=== PATIENT | male | born 1975 | race Caucasian/White ===

== ENCOUNTER 2017-01-13 13:20 | Observation (INO) ==
--- NOTE | 2017-01-13 14:59 | Emergency Department Note ---
Disposition Clinical Impression: TIA (transient ischemic attack) Qualifiers: Transient cerebral ischemia type: unspecified Qualified Code(s): G45.9 - Transient cerebral ischemic attack, unspecified Headache Qualifiers: Headache type: unspecified Headache chronicity pattern: acute headache Intractability: not intractable Qualified Code(s): R51 - Headache Disposition: Admitted As Inpatient Condition: Fair Referrals: Daya Parikh CNP [Primary Care Provider] - Forms: ED Satisfaction Letter Headache HPI - General Chief Complaint: ED Headache Stated Complaint: headache, memory loss Time Seen by Provider: 01/13/17 13:45 Limitations: no limitations Nursing Notes Reviewed: Yes Vital Signs Reviewed: Yes - History of Present Illness HPI Narrative: Patient does have a history of TIA 8 years ago presents today with a onset of headache last night at home and he is not sure of the exact onset denies that it was sudden and it has been constant and bitemporal and dull and the primary reason for emergency department evaluation is because he cannot remember anything that happened after he left the house this morning. His is here as well as his 4-year-old son the story is he went to to [facility] to get coffee and is amnestic to basically tired today. No medications used for his symptoms. He does have some weakness of the left arm and numbness of the left face. Denies any slurred speech, facial droop or overt confusion however he does have the amnesia as previously stated. He denies any fevers, rash, blood in the urine or stool. Social history: Chews tobacco but admits smoking. Does drink alcohol socially. No drugs. Pain Scale: 5 - Related Data Home Medications Medication Instructions Recorded Confirmed No Known Home Drugs 01/13/17 01/13/17 Allergies Allergy/AdvReac Type Severity Reaction Status Date / Time No Known Allergies Allergy Verified 01/13/17 13:30 Review of Systems: Constitutional: No fever Vision: No blurred vision ENT: No rhinorrhea Respiratory: No cough Allergic: No allergies : No blood in urine GI: No blood in stool Hematologic: No bruising Dermatologic: No skin rash Musculoskeletal: No pain in the extremities Neuro: + numbness of the extremities Headache PMH - Past Medical History Medical history: Reports: TIA Psychiatric history: Reports: no psych history - Social History Smoking Status: Never smoker Alcohol use: Reports: occasionally Drug use: Reports: none Physical Exam CONSTITUTIONAL: Well-appearing; well-nourished; A&O X3, in no apparent distress HEAD: Normocephalic; atraumatic. EYES: PERRL, EOMI, no scleral icterus NOSE: The nose is normal in appearance without rhinorrhea NECK: Supple without rigidity, no PRANEETH RESP: Normal chest excursion with respiration; breath sounds clear and equal bilaterally; no wheezes, rhonchi, or rales CARD: Regular rhythm, without murmurs, rub or gallop ABD: Non-distended; non-tender, soft, without rigidity, rebound or guarding SKIN: Normal for age and race; warm and dry; no apparent lesions, no rash NEUROLOGICAL: Patient is alert and oriented times three. Cranial nerves III- XII are intact. Sensory and motor functions are intact. Strength is 5/5 for flexion and extension in all 4 extremities. Finger to nose testing is equal and normal bilaterally. - General Limitations: no limitations General appearance: alert, in no apparent distress Course Vital Signs Temperature 98.2 F 01/13/17 13:30 Pulse Rate 63 01/13/17 13:30 Respiratory Rate 16 01/13/17 13:30 Blood Pressure 139/91 01/13/17 13:30 O2 Sat by Pulse Oximetry 98 01/13/17 13:30 Temperature 98.2 F 01/13/17 13:30 Pulse Rate 63 01/13/17 13:30 Respiratory Rate 16 01/13/17 13:30 Blood Pressure 139/91 01/13/17 13:30 O2 Sat by Pulse Oximetry 98 01/13/17 13:30 Oxygen Delivery Oxygen Delivery Room Air Headache - [facility] Narrative Medical decision making narrative: Patient is a negative head CT, labs are pending, patient's symptoms are very concerning a specimen light of his TIA he has had in the past. I do not subarachnoid hemorrhage. Patient will be admitted. Inpatient MRI scan is ordered. I will discuss further with the hospitalist with probable neurology consultation. 1500 I did review the patient's test results. I did speak with the hospitalist who will admit the patient. Neurology consultation. They will follow up the results of the MRI scan. At this point the patient does have a stroke scale of 0 and is not a thrombolytic candidate due to prolonged duration of symptoms and very low stroke scale. 1613 - Medical Records Medical records reviewed: Yes I reviewed the patient's medical records. - Lab Data Lab results reviewed: Yes I reviewed the patient's lab results. Result diagrams: 01/13/17 14:58 01/13/17 14:58 Lab Results 01/13/17 01/13/17 01/13/17 Range/Units 13:41 14:58 14:58 WBC 7.9 (4.3-11.1) K/mcL RBC 5.38 (4.19-5.50) M/mcL Hgb 15.8 (12.9-16.9) g/dL Hct 47.0 (37.5-50.1) % MCV 87.4 (83.0-100.0) fL MCH 29.4 (28.0-33.3) pg MCHC 33.6 (31.6-35.5) g/dL RDW 12.9 (11.5-14.5) % Plt Count 228 (140-400) K/mcL MPV 11.0 (9.4-12.4) fL Immature Gran % 0.8 (0-4) % Seg Neutrophils % 62.6 % Lymphocytes % 26.6 % Monocytes % 7.0 % Eosinophils % 2.5 % Basophils % 0.5 % Neutrophils # 5.0 (1.6-8.9) K/mcL Lymphocytes # 2.1 (0.6-4.6) K/mcL Monocytes # 0.6 (0.0-1.3) K/mcL Eosinophils # 0.2 (0.0-0.6) K/mcL Basophils # 0.0 (0.0-0.2) K/mcL Sodium 139 (136-145) mEq/L Potassium 4.2 (3.5-4.5) mEq/L Chloride 106 (98-109) mEq/L Carbon Dioxide 28 (19-29) mEq/L BUN 12 (8-26) mg/dL Creatinine 0.85 (0.72-1.25) mg/dL Est GFR ( Amer) > 60 (> 60) Est GFR (Non-Af Amer) > 60 (> 60) BUN/Creatinine Ratio 14 (6-26) Glucose 96 (70-99) mg/dL POC Glucose 95 H (58-89) Calculated Osmolality 288 (280-300) Calcium 9.3 (8.6-10.8) mg/dL Troponin I (0-0.03) ng/mL Urine Color (Yellow) Urine Clarity (Clear) Urine pH (5.0-8.0) pH Units Ur Specific [place] (1.010-1.025) Urine Protein (Neg-Trace) mg/dL Urine Glucose (UA) (Normal) mg/dL Urine Ketones (Negative) mg/dL Urine Blood (Negative) Urine Nitrite (Negative) Urine Bilirubin (Negative) Urine Urobilinogen (Normal) mg/dL Ur Leukocyte Esterase (Negative) Urine Opiates Screen (Jnajkr=763) ng/mL Ur Barbiturates Screen (Llzmkx=529) ng/mL Ur Phencyclidine Scrn (Cutoff=25) ng/mL Ur Amphetamines Screen (Pgmdtt=2337) ng/mL U Benzodiazepines Scrn (Cjqbay=702) ng/mL Urine Cocaine Screen (Cutoff= 300) ng/mL U Marijuana (THC) Screen (Cutoff = 50) ng/mL 01/13/17 01/13/17 01/13/17 Range/Units 14:58 15:31 15:36 WBC (4.3-11.1) K/mcL RBC (4.19-5.50) M/mcL Hgb (12.9-16.9) g/dL Hct (37.5-50.1) % MCV (83.0-100.0) fL MCH (28.0-33.3) pg MCHC (31.6-35.5) g/dL RDW (11.5-14.5) % Plt Count (140-400) K/mcL MPV (9.4-12.4) fL Immature Gran % (0-4) % Seg Neutrophils % % Lymphocytes % % Monocytes % % Eosinophils % % Basophils % % Neutrophils # (1.6-8.9) K/mcL Lymphocytes # (0.6-4.6) K/mcL Monocytes # (0.0-1.3) K/mcL Eosinophils # (0.0-0.6) K/mcL Basophils # (0.0-0.2) K/mcL Sodium (136-145) mEq/L Potassium (3.5-4.5) mEq/L Chloride (98-109) mEq/L Carbon Dioxide (19-29) mEq/L BUN (8-26) mg/dL Creatinine (0.72-1.25) mg/dL Est GFR ( Amer) (> 60) Est GFR (Non-Af Amer) (> 60) BUN/Creatinine Ratio (6-26) Glucose (70-99) mg/dL POC Glucose (58-89) Calculated Osmolality (280-300) Calcium (8.6-10.8) mg/dL Troponin I 0.01 (0-0.03) ng/mL Urine Color Yellow (Yellow) Urine Clarity Clear (Clear) Urine pH 5.5 (5.0-8.0) pH Units Ur Specific [place] 1.027 H (1.010-1.025) Urine Protein Negative (Neg-Trace) mg/dL Urine Glucose (UA) Normal (Normal) mg/dL Urine Ketones Negative (Negative) mg/dL Urine Blood Negative (Negative) Urine Nitrite Negative (Negative) Urine Bilirubin Negative (Negative) Urine Urobilinogen Normal (Normal) mg/dL Ur Leukocyte Esterase Negative (Negative) Urine Opiates Screen Negative (Jegtdd=102) ng/mL Ur Barbiturates Screen Negative (Zapmdi=625) ng/mL Ur Phencyclidine Scrn Negative (Cutoff=25) ng/mL Ur Amphetamines Screen Negative (Nfhzih=3747) ng/mL U Benzodiazepines Scrn Negative (Mtqtnf=416) ng/mL Urine Cocaine Screen Negative (Cutoff= 300) ng/mL U Marijuana (THC) Screen Negative (Cutoff = 50) ng/mL - Radiology Data Radiology results reviewed: Yes I reviewed the patient's radiology results. Critical Care Time Critical Care Time: No
[2017-01-13 15:08] LABS: Eosinophils % 2.5 %; Hemoglobin 15.8 g/dL (12.9-16.9); Immature Granulocytes % 0.8 % (0-4); Lymphocytes % 26.6 %; Mean Corpuscular HGB Conc 33.6 g/dL (31.6-35.5); Mean Corpuscular Hemoglobin 29.4 pg (28.0-33.3); Mean Corpuscular Volume 87.4 fL (83.0-100.0); Platelet Count 228 K/mcL (140-400); Red Blood Count 5.38 M/mcL (4.19-5.50); Red Cell Distribution Width 12.9 % (11.5-14.5); Segmented Neutrophils % 62.6 %
[2017-01-13 15:09] LABS: Basophils % 0.5 %; Eosinophils # 0.2 K/mcL (0.0-0.6); Lymphocytes # 2.1 K/mcL (0.6-4.6); Monocytes # 0.6 K/mcL (0.0-1.3)
[2017-01-13 15:21] LABS: BUN/Creatinine Ratio 14 (6-26); Blood Urea Nitrogen 12 mg/dL (8-26); Calcium 9.3 mg/dL (8.6-10.8); Carbon Dioxide 28 mEq/L (19-29); Chloride 106 mEq/L (98-109); Glucose 96 mg/dL (70-99); Osmolality,Calculated 288 (280-300); Potassium 4.2 mEq/L (3.5-4.5); Sodium 139 mEq/L (136-145); eGFR For African Americans > 60 (> 60); eGFR For Non-African Americans > 60 (> 60)
[2017-01-13 15:43] LABS: Bilirubin,Urine Negative (Negative); Blood,Urine Negative (Negative); Clarity,Urine Clear (Clear); Color,Urine Yellow (Yellow); Glucose,Urine (UA) Normal (Normal); Ketones,Urine Negative (Negative); Leukocyte Esterase,Urine Negative (Negative); Nitrite,Urine Negative (Negative); PH,Urine 5.5 pH Units (5.0-8.0); Protein,Urine Negative (Neg-Trace); Specific Gravity,Urine 1.027 (1.010-1.025); Urobilinogen,Urine Normal (Normal)
[2017-01-13 15:53] LABS: Amphetamine Screen,Urine Negative ng/mL (Cutoff=1000); Barbiturate Screen,Urine Negative ng/mL (Cutoff=200); Benzodiazepines Screen,Urine Negative ng/mL (Cutoff=200); Cannabinoid Screen,Urine Negative ng/mL (Cutoff = 50); Cocaine Screen,Urine Negative ng/mL (Cutoff= 300); Opiate Screen,Urine Negative ng/mL (Cutoff=300); Phencyclidine Screen,Urine Negative ng/mL (Cutoff=25)
--- NOTE | 2017-01-14 07:52 | Internal Med History&Physical ---
Date of Encounter: 01/14/17 Time of Encounter: 08:04 Assessment and Plan (1) DVT prophylaxis Current visit: Yes Status: Acute Encourage early ambulation (2) Tobacco use Current visit: Yes Status: Acute I educated the patient about r health hazards of chewing tobacco. isk (3) TIA (transient ischemic attack) Current visit: Yes Status: Acute Sudden memory loss and inpatient with no significant toxic habits, no traumatic injury, consistent with TIA. Plan: MRI of the brain was negative. We will consult neurology. Check echocardiogram and carotid Dopplers. Start aspirin 81 mg daily. Check lipid panel. Qualifiers: Transient cerebral ischemia type: transient global amnesia Qualified Code(s ): G45.4 - Transient global amnesia Internal Medicine - H&P: HPI Chief complaint: Memory loss Admitted From: Emergency Dept Plans for Post Hospital Care: Home History of present illness: Mr. Whiting is a 42 year old male with past medical history significant for TIA 8 years ago who presented to the hospital for memory loss. History is limited by memory impairment. Currently the patient is back to baseline and states that yesterday morning he woke up at 5 AM to get ready for work. He remembers having a mild to moderate bitemporal headache. He cannot recollect any other events from yesterday morning. The next thing he remembers is waking up around noon, confused and not remembering what happened that morning. He denies any alcohol use, denies any recreational use denied before, denies starting any new medications. A 10 point review of systems was negative. Past medical history as above Past surgical history vein stripping for varicose veins of the leg. Family history positive for history of IN in the patient's father at age 60. Social history: He chews tobacco, denies alcohol abuse, denies recreational drug use. Past Med Surg Social Fam HX - Past Medical History Medical history: TIA Psychiatric history: no psych history - Social History Smoking Status: Never smoker Smokeless Tobacco Status: Yes Alcohol use: occasionally Drug use: none - Family History Father Living Status: Hx Family Cardiac Disorders: Yes Hx Family Cancer: Yes Hx Family Neurologic Disorders: Yes Internal Medicine - H&P: Meds No Known Home Drugs 01/13/17 [History] 3 Allergy/AdvReac Type Severity Reaction Status Date / Time No Known Allergies Allergy Verified 01/13/17 13:30 All Systems PM: A 10-system review of systems was performed and is negative for pertinent findings except as documented above in the HPI. - Constitutional Vitals: Temp Pulse Resp BP Pulse Ox 98.4 F 57 18 131/80 97 01/14/17 06:51 01/14/17 06:51 01/14/17 06:51 01/14/17 06:51 01/14/17 06:51 General appearance: Present: A&O X 3, no acute distress - Eye Eye exam: Present: PERRL, conjuntiva pink, sclera anicteric Pupils: Present: PERRL - Respiratory Respiratory exam: Present: CTAB. Absent: accessory muscle use, rales, rhonchi, wheezes - Cardiovascular Cardiovascular exam: Present: RRR, +S1, +S2. Absent: diastolic murmur, gallop, rubs, systolic murmur - GI/Abdominal GI/Abdominal exam: Present: normal bowel sounds, soft, no peritoneal signs. Absent: distended, tenderness - Extremities Exam Extremities exam: Present: warm, radial pulses palpable and symmetrical. Absent : calf tenderness, cyanotic, pedal edema - Neurological Exam Neurological exam: Present: CN II-XII intact, oriented X3, no focal deficits. Absent: pronater drift, facial droop, speech deficit - Skin Skin exam: Present: dry, intact Internal Med - H&P Results - Labs CBC & Chem 7: 01/13/17 14:58 01/13/17 14:58 - EKG Data -: EKG Interpreted by Myself EKG shows normal: intervals, QRS complexes Rate: bradycardia (Sinus bradycardia 57 bpm)
[2017-01-14] MEDS ORDERED: Acetaminophen 325 MG TABLET PO PRN (08:11)
[2017-01-14 09:08] LABS: Chol/HDL Ratio 4.9 (0-4.9)
[2017-01-14] MEDS: Aspirin Enteric Coated 81 MG Tablet PO SCH (09:17)
--- NOTE | 2017-01-14 09:55 | Neurology - Consult Note ---
<Frederick Magaña - Last Filed: 01/14/17 09:46> Date of Encounter: 01/14/17 Time of Encounter: 08:15 Assessment and Plan (1) Spell of altered consciousness Current Visit: Yes Status: Acute Patient presents with description of loss of memory for 4 hours as well as continued pressure remedy weakness. He states that resolution of the numbness and tingling. Physical exam shows decreased strength in left upper extremity. Imaging performed so far reveals no abnormalities. Patient's description of the events and symptoms do not entirely correspond to TIA as altered consciousness is not typically part of symptoms and he has no apparent risk factors. Although altered consciousness and lack of memory as possible with seizure, she appears to have been functional during his period of loss of memory. Transient global amnesia is possible, but patient continues to have symptoms. MRI of brain normal Will obtain MRI of patient neck Will obtain EEG Recommend aspirin History of Present Illness Chief complaint: Altered consciousness HPI: Mr. Whiting is a 42 year old male with prior history of TIA presents [place] after one day of altered mental status. He states he woke up yesterday morning and on his way to work to [employer] at 5:30 in the morning after which she has no memory. He reportedly returned to home at 9 AM it appeared fatigued and confused. He then went back to sleep and awoke at noon. His number returns that point he states he had some numbness, tingling, and some weakness in his left arm. He does not have any recollection of the events occurred, but he was able to drive himself home despite the memory loss. He states he has had an episode like this for about 8 years ago when he was diagnosed with a TIA. He was scared because the symptoms were similar to what had occurred previously. He denies being sick, fever/chills, or any illness preceding this event. He states he recently started new job but he has had no more than usual amount of stress in his life. Past Med Surg Social Fam HX - Past Medical History Medical history: TIA Psychiatric history: no psych history - Social History Smoking Status: Never smoker Smokeless Tobacco Status: Yes Alcohol use: occasionally Drug use: none - Family History Father Living Status: Hx Family Cardiac Disorders: Yes Hx Family Cancer: Yes Hx Family Neurologic Disorders: Yes Medications and Allergies No Known Home Drugs 01/13/17 [History] 3 Allergy/AdvReac Type Severity Reaction Status Date / Time No Known Allergies Allergy Verified 01/13/17 13:30 Review of Systems: Gen: Denies fever, denies chills, denies generalized weakness CV: Denies chest pain Resp: Denies shortness of breath GI: Denies nausea, denies vomiting, denies abdominal pain Neuro: Denies headache, reports confusion and memory loss as per history of present illness, reports focal weakness in left arm, reports numbness and tingling in right arm, denies vision changes Physical Examination - Vital Signs Vital Signs: Initial Vital Signs Temp Pulse Resp BP Pulse Ox 98.2 F 63 16 139/91 98 01/13/17 13:30 01/13/17 13:30 01/13/17 13:30 01/13/17 13:30 01/13/17 13:30 - Exam Exam: General: Cooperative, pleasant, no acute distress, alert and oriented 3, answers questions appropriately HEENT: Normocephalic, atraumatic, neck supple, trachea midline, Conjunctiva pink , sclera anicteric, EOMI, PERRL, oral mucosa moist, no orophargeal erythema or exudates Respiratory: No accessory muscle usage Cardiovascular: Regular rate and rhythm Extremities: No calf tenderness, noncyanotic, no pedal edema appreciated, warm, lower extremity pulses palpable and symmetrical Neurological: Alert and oriented 3, no facial droop, no focal deficits, cranial nerves II through XII grossly intact bilaterally, rapid alternating movements smooth with good nilam, finger to nose accurate but tremulous and left upper extremity, sensation to gross touch intact in upper and lower extremities bilaterally, strength 5/5 in right upper and lower extremities bilaterally, strength 4/5 in left upper extremity, DTRs 2/4 in Achilles, patellar, brachioradialis Results - Laboratory Findings CBC and BMP: 01/13/17 14:58 01/13/17 14:58 Abnormal lab findings: Abnormal lab results POC Glucose 95 (58-89) H 01/13/17 13:41 Triglycerides 150 mg/dL (< 150) H 01/14/17 08:43 Cholesterol 209 mg/dL (< 200) H 01/14/17 08:43 LDL Cholesterol, Calc 136 mg/dL (0-99) H 01/14/17 08:43 Ur Specific [place] 1.027 (1.010-1.025) H 01/13/17 15:31 Consult Discharge Plan - Plan Referrals: aDya Parikh, IT APPLICATION ARCHITECT [Primary Care Provider] - <Norbert Lewis I - Last Filed: 01/14/17 10:35> Date of Encounter: 01/14/17 Assessment and Plan (1) Spell of altered consciousness Current Visit: Yes Status: Acute Patient seen and examined with Dr. Magaña documentation. Patient had this unusually spell of altered consciousness that he was able to function due to that time but not able to remember any of those event despite the fact that he was able to drive back home and after that he managed to sleep. He did not have any focal motor weakness at that time that he could recall and also there was no reports of any jerking or shaking activity. MRI of the brain is negative for any acute ischemic abnormality and at the same time there is no other abnormality noted. At this time it is unclear the cause of these episodes that he has experienced. As far as differential is concerned One possibility that it could be transient global amnesia (TGA) But we do not have any family witness about to the conversation he had bleeding that time as most of the time these patients are not able to have any short- term memory but able to function and working memory is intact most of the time workup is negative especially stroke workup and they are back to baseline quickly. As far as consent of TIA or stroke I really doubt that is the case as most of the time with a TIA or stroke , memory is usually intact particularly not that long period of time. Other possibility could be of complex partial seizures without convulsion. For that reason we will get an EEG to look for any interictal abnormalities at this time do not think that he would require any treatment with anticonvulsant medication unless we see some abnormality on an EEG. Suggest that he should monitor his blood pressure at the same time also need to look into other similar etiologies particularly stress as it may be the contributing factor. Norbert Lewis MD History of Present Illness HPI: Mr. Whiting is a 42 year old male All Systems: A 10-system review of systems was performed and is negative for pertinent findings except as documented above in the HPI. Physical Examination - Vital Signs Vital Signs: Initial Vital Signs Temp Pulse Resp BP Pulse Ox 98.2 F 63 16 139/91 98 01/13/17 13:30 01/13/17 13:30 01/13/17 13:30 01/13/17 13:30 01/13/17 13:30 Results - Laboratory Findings CBC and BMP: 01/13/17 14:58 01/13/17 14:58 Abnormal lab findings: Abnormal lab results POC Glucose 95 (58-89) H 01/13/17 13:41 Triglycerides 150 mg/dL (< 150) H 01/14/17 08:43 Cholesterol 209 mg/dL (< 200) H 01/14/17 08:43 LDL Cholesterol, Calc 136 mg/dL (0-99) H 01/14/17 08:43 Ur Specific [place] 1.027 (1.010-1.025) H 01/13/17 15:31
[2017-01-14 13:12] LABS: Folate 11.4 ng/mL (7.0-31.4)
--- NOTE | 2017-01-14 15:32 | Electrocardiograph Report ---
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
[2017-01-15] MEDS: Aspirin Enteric Coated 81 MG Tablet PO SCH (08:25)
--- NOTE | 2017-01-15 10:18 | EEG/EMG/Oth Biometrics Report ---
EEG Procedure Report Date of procedure: 01/15/17 EEG Procedure: Routine EEG Procedure Note: This is a report of a 21 channel bipolar and referential montage EEG. A posterior dominant rhythm of 9-10 Hz moderate voltage alpha frequency is identified symmetrically in the posterior head regions. This rhythm attenuates symmetrically with eye opening. Hyperventilation is not performed during the recording. Periods of drowsiness identified as referenced by dropout of the posterior dominant rhythm and emergence of spindle-like activity. The subject does not however approach stage II sleep. Photic stimulation is performed and does not produce a driving response. The EKG rhythm strip reveals normal sinus rhythm at 66 bpm. Impressions: This EEG recording is within normal limits. There is no evidence of epileptiform activity identified during the study. Comment: A normal EEG does not preclude a diagnosis of seizure or epilepsy. If the clinical suspicion for seizure activity is high, serial EEGs or perhaps a prolonged recording may increase the yield. Please correlate clinically.
--- NOTE | 2017-01-15 14:10 | Neurology Progress Note ---
Date of Encounter: 01/15/17 Time of Encounter: 14:06 Assessment and Plan (1) Spell of altered consciousness Current Visit: Yes Status: Acute At this juncture unable to offer a concrete neurologic explanation for this gentleman's altered consciousness and ongoing paresthesias and weakness of the left upper extremity. MRI scan of the brain, MRI scan of the cervical spine, and EEG were all normal. I agree with Dr. Lewis's assessment. Certainly transient global amnesia is possible. Other explanations seem less likely. I would like to follow up with this gentleman in my office after discharge to perform an EMG study of the left upper extremity. You may discharge him at your discretion. Subjective Interval history: The pleasure of following up with Long Whiting Re: Chief complaint memory loss, left upper extremity numbness and weakness. He is alert and oriented now. He still complains of left upper extremity weakness however he does maintain functional use of the left arm. His workup however has been completely negative. MRI scan of the brain was negative, I did read his EEG this morning it was normal, MRI of the cervical spine does not reveal an etiology to explain weakness of his left arm. Objective - Constitutional Vitals: Temp Pulse Resp BP Pulse Ox 98.6 F 64 16 129/86 99 01/15/17 11:04 01/15/17 11:04 01/15/17 11:04 01/15/17 11:04 01/15/17 11:04 - Neurological Exam Motor examination - right side: 5/5: deltoids, biceps, triceps, robotic welder, hip flexors, tibialis Anterior, quadriceps, toe extension (EHL), plantarflexion Motor examination - left side: 4/5: deltoids, biceps, triceps, robotic welder, quadriceps , tibialis Anterior, toe extension (EHL), plantarflexion Sensation intact: Present: intact Mental Status Examination: Present: awake, alert, oriented to person, oriented to place, oriented to time, follows commands appropriately, answers questions appropriately Cranial nerve examination: Present: PERRL, EOMI, visual smith intact, corneal reflexes brisk symmetrically, sensory to face intact, mastication intact, no facial asymmetry is present, no dysarthria, hearing is intact symmetrically, tongue protrudes midline Cerebellar examination: Present: no dysmetria Results - Laboratory Findings CBC and BMP: 01/13/17 14:58 01/13/17 14:58 Abnormal lab findings: Abnormal lab results POC Glucose 95 (58-89) H 01/13/17 13:41 Triglycerides 150 mg/dL (< 150) H 01/14/17 08:43 Cholesterol 209 mg/dL (< 200) H 01/14/17 08:43 LDL Cholesterol, Calc 136 mg/dL (0-99) H 01/14/17 08:43 Ur Specific [place] 1.027 (1.010-1.025) H 01/13/17 15:31 Consult Discharge Plan - Plan Referrals: Daya Parikh, FIL[employer] PRESS TENDER [employer] [Primary Care Provider] -
[2017-01-15 14:55] VITALS: BP 151/97
--- NOTE | 2017-01-15 18:15 | Discharge Summary ---
Date of Encounter: 01/15/17 Time of Encounter: 08:00 - Discharge Diagnosis (1) TIA (transient ischemic attack) Priority: Secondary Status: Ruled-out Comments: Pt most likely did not have TIA, but instead, a spell of altered consciousness, perhaps even a conversion reaction. Pt will follow up with neurology for follow up visit for EMG on upper left extremity. Qualifiers: Transient cerebral ischemia type: transient global amnesia Qualified Code(s ): G45.4 - Transient global amnesia (2) Tobacco use Priority: Secondary Status: Chronic Comments: Pt states that he is a smoker, discussed benefits of smoking cessation. Pt will be given rx for nicotine patches on discharge. (3) Spell of altered consciousness Priority: Secondary Status: Acute Comments: Pt with prior history of TIA 8 years ago, presented to the ED with short term memory loss. Pt states that on the left his house at 0500 to go to work. he states that he went to [employer] to get coffee and remembers nothing until he woke up at home at 1230 that afternoon. Pt states that his son was home sick and pt arrived back home at 0930 and went to bed until 1230. He reports mild headache and left arm weakness, which persists. He denies known injury, ETOH, or drug use and denies any history of same in the past. All imaging and labs have been negative. The only significant abnormal finding is some spinal stenosis on neck MRI, which is most likely not causing memory loss, however, could contribute to left arm issues. Lipid panel is slightly elevated, will start on low dose statin. Pt also will continue ASA daily. Left arm weakness and decreased senstation continues, pt would most likely benefit from PT/OT outpatient. Neurology recommends that pt follow up with them for EMG in the office. Hand X-Ray 01/13/17 00:00 IMPRESSION: 4 mm metallic foreign body in the radial aspect of the 2nd proximal phalanx. This does not preclude patient from MRI. No acute osseous abnormality. D/ / Kasandra Rashid MD / Kasandra Rashid MD Interpreting Provider: Kasandra Rashid MD Chest X-Ray 01/13/17 13:42 IMPRESSION: No acute process. D/ / aMry Segovia MD / Mary Segovia MD Interpreting Provider: Mary Segovia MD Head CT 01/13/17 13:45 IMPRESSION: No acute intracranial abnormality. D/ / Ruben Augustin MD / Ruben Augustin MD Interpreting Provider: Ruben Augustin MD Brain MRI 01/13/17 14:50 IMPRESSION: Unremarkable exam D/ / Mitul Monk MD / Mitul Monk MD Interpreting Provider: Mitul Monk MD Echocardiogram 01/14/17 08:18 Impressions: No evidence of PFO by color Doppler or agitated saline LVEF 60-65%. Unable to estimate RVSP due to lack of TR jet. No significant valvular dysfunction. Left Ventricular Wall Motion: Rest Echo Findings All wall segments showed normal motion. Findings: Study Quality * Technically adequate exam. Left Atrium * Normal left atrial size. Right Atrium * Normal right atrial size. Mitral Valve * Normal mitral valve structure and function. Interatrial Septum * No evidence of PFO by color Doppler or agitated saline Aorta * Normally sized aortic root. Pericardium * The pericardium appears normal. ECG Findings * Normal sinus rhythm. Pulmonic Valve * No pulmonic stenosis. * Trace pulmonic regurgitation. Tricuspid Valve * Trace tricuspid regurgitation. * No tricuspid stenosis. * Unable to estimate RVSP due to lack of TR jet. Left Ventricle * LVEF 60-65%. * Indeterminate diastolic function. Aortic Valve * No aortic regurgitation. * No aortic stenosis. * Aortic valve not well visualized. Right Ventricle * Mildly dilated right ventricle. * Normal function Cervical Spine MRI 01/14/17 10:10 IMPRESSION: Right paracentral disc protrusion at C5-C6 abuts the ventral aspect of the spinal cord and contributes to mild spinal canal stenosis. No cord signal abnormality. Central disc protrusion at C6-7 contributes to mild spinal canal stenosis. D/ / 01/14/2017 13:58:55 Kasie Tavarez MD / earnold Interpreting Provider: Kasie Tavarez MD (4) DVT prophylaxis Priority: Secondary Status: Acute Comments: Pt has been ambulatory. - Discharge Medications Prescriptions: Aspirin Enteric Coated [Aspirin EC] 81 mg PO DAILY #30 tablet. Nicotine Patch [Nicoderm] 14 mg TD DAILY #28 patch.td24 Simvastatin [Zocor] 10 mg PO HS #30 tablet Home Medications: Aspirin Enteric Coated [Aspirin EC] 81 mg PO DAILY #30 tablet. 01/15/17 [Rx] Nicotine Patch [Nicoderm] 14 mg TD DAILY #28 patch.td24 01/15/17 [Rx] Simvastatin [Zocor] 10 mg PO HS #30 tablet 01/15/17 [Rx] Allergies/Adverse Reactions: 3 Allergy/AdvReac Type Severity Reaction Status Date / Time No Known Allergies Allergy Verified 01/13/17 13:30 Procedures/tests Complete & Pending: Procedures Performed prior 72 hours Category Date Time Status MR cervical spine wo con [MR] Routine MRI 01/14/17 10:10 Completed EV carotid duplex imaging BI Stat Y 01/14/17 08:18 Completed EV echocardiogram Stat Y 01/14/17 08:18 Completed Date of admission: 01/13/17 16:26 Primary care physician: Daya Parikh CNP Consults: 01/14/17 08:12 Consult to Physician [CONS] Routine Consulting Provider: Norbert Lewis I Reason for Consult: TIA Time Notified: 08:12 Call Completed: Yes 01/14/17 11:44 Consult to Interpret Exam [CONS] Routine Consulting Provider: Norbert Lewis I Consult to Interpret Exam: Interpret EEG Discharging clinician: Venessa Gerard Anticipated date of discharge: 01/15/17 - Patient Status Disposition: Home, Self-Care Condition: Good Functional capacity at discharge: independent ambulation Overall status at discharge: patient is progressing back to baseline - Discharge Instructions Instructions: Influenza Virus Vaccine (Injection), Transient Ischemic Attack ( DC), How to Stop Smoking (GEN), Migraine Headache (DC), Cigarette Smoking and Your Health (GEN) Follow Up With: Long Beth DO [Partnered Physician] - (The office will call you with an appointment time and day. If you do not hear from them with in the next 3-4 buisness days, please call the office. ) Daya Parikh, [employer] [Primary Care Provider] - (Please call your primary care doctor to schedule an appointment with in 7-10 days. ) Additional Instructions: Please follow up with PCP in the next 7-10 days for a hospital follow up visit. I recommend PT/OT for left arm weakness Return to the ER as needed for any other problems or concerns, or if your symptoms return or worsen. Continue taking Aspirin daily, also start Zocor, and I have called in a prescription for nicotine patches, please try to stop smoking. Resume your normal activities as tolerated, however, you need to be cleared by PCP prior to returning to work. Do not drive until you are cleared. Dr. Beth' office will contact you to schedule an EMG Of your left arm. - Diet and Activity Activity: increase activity as tolerated, return to work once cleared by your PCP/specialist Diet: advance to your usual diet Hospital course: Mr. Whiting is a 42 year old male with PMH of TIA, smoking. Presents with temporary memory loss and spell of altered conscioiness. Pt has returned to baseline, but has no recollection of where he was during the time in question. He denies jones, blurred vision, n/v/d, vision changes, SOB, chest pain, or abdominal pain. He also reported left arm weakness on arrival, this remains. He does not really have any facial droop or weakness in left lower extremity. Patient would benefit from physical therapy outpatient. This will been ordered by primary care. I do want him to follow up with primary care prior to returning to work. Patient's vital signs been stable and within normal limits. Patient has been started on aspirin, he is also been started on a statin due to very mildly elevated cholesterol level. We discussed smoking cessation for about 5 minutes , we discussed different tools and methods. He states he will quit on his own, however I will give him a prescription for patches in case he changes his mind. Please see assessment and plan for hospital course. Patient has been evaluated by neurology, he would like to follow-up in the office with an EMG. He feels there is no concrete neurologic explanation for what is going on. Brain MRI, C-spine MRI and EEG all normal. Time spent discussing smoking cessation with patient: 3 to 10 minutes - Time Spent with Patient Total time spent providing and/or coordinating discharge services: Less than 30 minutes - Constitutional Vitals: Temp Pulse Resp BP Pulse Ox 97.9 F 66 15 151/97 100 01/15/17 14:54 01/15/17 14:54 01/15/17 14:54 01/15/17 14:54 01/15/17 14:54 General appearance: Present: cooperative, A&O X 3, no acute distress, answers questions appropriately - Head Head exam: Present: atraumatic, normal inspection, normocephalic - Eye Eye exam: Present: EOMI, normal appearance, conjuntiva pink, sclera anicteric. Absent: nystagmus Pupils: Present: PERRL. Absent: irregular - Neck Neck exam general surgery: Present: normal inspection, supple, trachea midline. Absent: lymphadenopathy, tenderness - Respiratory Respiratory exam: Present: CTAB. Absent: accessory muscle use, rales, respiratory distress, rhonchi, wheezes - Cardiovascular Cardiovascular exam: Present: RRR, +S1, +S2. Absent: diastolic murmur, gallop, rubs, systolic murmur - GI/Abdominal GI/Abdominal exam: Present: normal bowel sounds, soft, no peritoneal signs. Absent: distended, hepatomegaly, tenderness - Extremities Exam Extremities exam: Present: normal capillary refill, normal inspection, warm, radial pulses palpable and symmetrical. Absent: calf tenderness, cyanotic, pedal edema, tenderness - Expanded Upper Extremities Exam General: Absent: normal inspection Upper Arm exam: Absent: normal inspection Vascular exam: Present: radial pulse right, radial pulse left - Neurological Exam Neurological exam: Present: alert, CN II-XII intact, motor sensory deficit, oriented X3, no focal deficits. Absent: strengths equal and symetr throughout, pronater drift, facial droop, speech deficit - Psychiatric Psychiatric exam: Present: normal affect, normal mood - Skin Skin exam: Present: dry, intact, normal color, warm. Absent: rash
== END 2017-01-15 19:30 | disposition home or self-care (01) ==
LOC: EMEROO 13:20 → 3BNU 13:20
PROVIDERS: ADMIT Internal Medicine; ATTEND Registered Nurse